=== PATIENT | female | born 2000 | race Caucasian/White ===

== ENCOUNTER 2023-11-10 00:52 | Emergency (ER) | payer SELFPAY ==
[~2023-11-10] VITALS: Ht 167.6 cm; Wt 61.2 kg
[2023-11-10 02:09] VITALS: BP 121/65; TEMP 97.9; O2SAT 100
== END 2023-11-10 02:34 | disposition home or self-care (01) ==
LOC: ER 01:10
DX: S61.303A Unspecified open wound of left middle finger with damage to nail, initial encounter (principal); Z88.8 Allergy status to other drugs, medicaments and biological substances; Z60.2 Problems related to living alone; W23.0XXA Caught, crushed, jammed, or pinched between moving objects, initial encounter; Y93.89 Activity, other specified; Y92.89 Other specified places as the place of occurrence of the external cause; Y99.8 Other external cause status